=== PATIENT | female | born 2005 | race Caucasian/White ===

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

== ENCOUNTER 2025-03-21 19:23 | Emergency (ER) | payer OTHER, SELFPAY ==
[2025-03-21 19:29] VITALS: BP 129/82
[2025-03-21 19:48] LABS: Hematocrit 38.3 % (37.0-47.0); Hemoglobin 12.1 g/dL (12.0-16.0); Mean Corp Hgb Conc. 31.6 g/dL (33.0-37.0); Mean Corpuscular Volume 82.2 fL (81.0-99.0); Nucleated Red Blood Cells % 0 %; Platelet Count 202 10^3/uL (130-400); Red Cell Dist. Width 14.9 % (11.5-14.5)
[2025-03-21 19:48] LABS: Urine Character Clear (Clear)
[2025-03-21 19:59] LABS: Urine Squamous Cell 21-25 /LPF (Few)
[2025-03-21 20:00] LABS: Urine Red Blood Cell None Seen /HPF (0-2)
[2025-03-21 20:16] LABS: HCG, Serum Qualitative Screen Negative
[2025-03-21 20:23] LABS: Troponin I < 0.012 ng/ml
[2025-03-21 20:25] LABS: ALT (SGPT) 25 U/L (0-35); AST (SGOT) 22 U/L (14-36); Albumin 4.8 g/dl (3.5-5.0); Alkaline Phosphatase 85 U/L (38-126); Blood Urea Nitrogen 16 mg/dl (7-17); Calcium 9.9 mg/dl (8.4-10.2); Carbon Dioxide 25 mmol/L (22-30); Chloride 105 mmol/L (98-107); Glucose 93 mg/dl (70-99); Lipase 64 U/L (23-300); Potassium 4.5 mmol/L (3.5-5.1); Sodium 135 mmol/L (135-145); Total Protein 8.1 g/dl (6.3-8.2); eGFR > 60.00
--- NOTE | 2025-03-21 21:27 | ED.GENMED ---
History of Present Illness
General
Chief Complaint: Abdominal Symptoms
Source: patient
Time Seen by Provider: 03/21/25 21:10
History of Present Illness
History of Present Illness:
This patient is a 20-year-old female who states she was feeling perfectly well until she arrived to [employer] a few hours ago and developed nausea associated with several episodes of nonbloody vomiting. With this, she also noted generalized
abdominal, headache, and chest pain. She says she is having 'a lot of anxiety', and the symptoms are very typical when her anxiety worsens. She denies SI or HI, feels safe where she lives, and states she has 'a lot going on'. Her LMP was
approximately 2 weeks ago. She denies vaginal discharge or bleeding, urinary symptoms, recent trauma or fall, photophobia, visual changes, neck pain, numbness, tingling, focal weakness, dyspnea. Her chest discomfort is vague, anterior, no LOC not
localized, not pleuritic in nature, not associated with URI symptoms or dyspnea or leg swelling. Patient is not on estrogen products and is a non-smoker, no identifiable PE risk factors noted. Headache is generalized, mild, without provoking or
relieving factors, not sudden onset, not worst of life, not associate with neurological symptoms.
Past History
Past History
ED Past Medical History: Psychiatric and Other (Gastritis)
ED Past Surgical History: None
Social History
Tobacco: Former smoker
Alcohol: None
Drug: None
Personal: Single
Living: other ('intermediate')
Phy Exam
Physical Exam
Physical Exam:
GENERAL: Alert , in no apparent distress
EYE: pupils equal and reactive, no photophobia, EOMI, no nystagmus
NECK: Supple, no significant adenopathy.
ENT: o/p clr, mmm.
CARDIAC: Regular rate and rhythm .
LUNGS: Clear breath sounds bilaterally, no acute respiratory distress, no wheezes/rales/rhonchi
ABDOMEN: Soft, without focal tenderness, no r/g, no cvat
NEUROLOGICAL: Alert and oriented, no focal neuro deficits
SKIN: Warm and dry, skin intact.
MUSCULOSKELETAL: No edema, well perfused.
PSYCH: Normal and appropriate interaction.
Course
Orders/Labs/Results
Orders:
Orders
03/21/25 19:31
ECG [Electrocardiogram (*1)] Urgent
Reason for Study: Chest Pain
EKG- Treatment ONCE
Urinalysis Reflex To Culture Urgent
Date Specimen was Collected: 03/21/25
Time Specimen was Collected: 19:31
Urine Microscopic Reflex Cult Urgent
Urine Culture Urgent
ROMAN Source: U
Specimen Description:
Date Specimen was Collected: 03/21/25
Time Specimen was Collected: 19:31
Test Result ONCE
03/21/25 19:36
Complete Blood Count/With Diff Urgent
Comprehensive Metabolic Panel Urgent
HCG, Serum Qualitative Screen Urgent
Lipase Urgent
Troponin I Urgent
03/21/25 21:27
Ibuprofen [Motrin] 800 mg PO NOW STA
Ondansetron HCl [Zofran] 4 mg PO NOW STA
Abnormal Lab Results
03/21/25 03/21/25
19:31 19:36
MCH 26.0 L pg
(27.0-31.0)
MCHC 31.6 L g/dL
(33.0-37.0)
RDW 14.9 H %
(11.5-14.5)
Absolute Neuts (auto) 6.8 H 10^3/uL
(1.4-6.5)
Absolute Monos (auto) 0.8 H 10^3/uL
(0.1-0.6)
Leukocyte Esterase Rfl 1+ A
(Negative)
Urine Bacteria (Reflex) Few A
(Negative)
03/21/25 19:36
03/21/25 19:36
Vital Signs
Initial and Last Documented VS:
Initial Vital Signs
Temp Pulse Resp BP Pulse Ox
98.0 F 79 20 129/82 99
03/21/25 19:29 03/21/25 19:29 03/21/25 19:29 03/21/25 19:29 03/21/25 19:29
Last Documented Vital Signs
Temp Pulse Resp BP Pulse Ox
98.1 F 76 14 121/80 98
03/21/25 21:40 03/21/25 21:40 03/21/25 21:40 03/21/25 21:40 03/21/25 21:40
*Pulse Oximetry
SaO2: 99
Oxygen Mode of Delivery: Room air
Patient hypoxic: no
*Critical Care Note
Total Time (30-74mins, 75-104mins- exclusive of procedures): Not Applicable
Update Note
Update Note:
Patient presents to the Emergency Department with __nausea vomiting with anxiety, headache, abdominal pain, chest pain
Number and Complexity of Problems Addressed at the Encounter
� Chronic conditions affecting care:
� Acute Exacerbation and/or Progression of Chronic Illness:
� Differential Diagnosis includes: But not limited to tension headache, SAH, pleurisy, PE, pericarditis, anxiety, cholecystitis, appendicitis, gastritis, etc. etc. etc.
Amount and/or Complexity of Data to be Reviewed and Analyzed
� I performed an independent evaluation of and my interpretation is:
EKG: Read by me, normal sinus rhythm, normal rate, normal axis, no acute ischemia
CT:
Xrays:
Laboratory Studies: Generally unremarkable, hCG negative
Other:
� Review of other/old records reveals: Prior ER visits reviewed
� Clinical information was obtained by an independent historian:
� Prescriptions/Medications Considered but not given:
� Further testing considered but not performed:
Risk of Complications and/or Morbidity or Mortality of Patient Management
� Social determinants of health affecting care:
� Discussion with other providers (PCP, Hospitalists, Consultants, etc):
� Escalation of care including admission/observation vs risk of discharge considered: Patient overall well-appearing, no focal findings or 'red flags' to suggest serious or life-threatening etiology for her diffuse symptoms.
Patient given pain medication and Zofran, will observe.
ED Attending Note
-
Portions of this chart may have been created with voice recognition software.� Occasional wrong word or��sound alike� substitutions may have occurred due to the inherent limitations of voice recognition software.
Discharge Plan
Departure
Patient Disposition: Home (Routine Discharge)
Date of Disposition: 03/21/25
Time of Disposition: 22:26
Patient with high blood pressure during this ER visit?: Yes
Condition: Good
Discharge Problem:
Nausea & vomiting
Instructions: Nausea and Vomiting, Adult (DC), Abdominal Pain, BLOOD PRESSURE
Prescriptions:
No Action
pantoprazole [Protonix] 40 mg tablet,delayed release (DR/EC)
40 mg PO DAILY Qty: 10 0RF
Anxiety Medicine
25 mg PO DAILY
Patient Comments:
pt does not know name of medicine and says she started it recently
magnesium glycinate 100 mg magnesium Capsule
100 mg PO HS
Referrals:
Yesenia Ceja CRNP [Family Provider, Family Practice] - Follow up in 2-3 days
Activity Restrictions/Additional Instructions:
IF YOU DEVELOP PERSISTENT NAUSEA OR VOMITING, ANY FEVER, NEW OR PERSISTENT CHEST PAIN HEADACHE OR ABDOMINAL PAIN, GET WORSE, DO NOT GET BETTER, OR OTHER WORRISOME SIGNS, PLEASE RETURN TO THE ER IMMEDIATELY!
Interventions
Interventions:
*Risk Screen - Suicide Last Done: 03/21/25 21:34
*General Assessment Last Done: 03/21/25 19:29
*Neglect/Abuse Screening Last Done: 03/21/25 21:34
*ED- Fall Risk Assessment Last Done: 03/21/25 21:34
*ED COVID-19 Vaccine History Last Done: 03/21/25 21:34
*ED Influenza Vaccine History Last Done: 03/21/25 21:34
*Nursing Disposition Last Done: 03/21/25 22:39
XU-Ynwptk-Rblxewqxmk Assessment Last Done: 03/21/25 21:46
Discharge Date and Time
Discharge Date/Time: 03/21/25 22:39
Print Language: ANGUILLAN
[2025-03-21 21:34] VITALS: BMI 30.1
[2025-03-21 21:40] VITALS: BP 121/80
[2025-03-21] MEDS: ZOFRAN 4 MG PO (21:41)
[2025-03-21] MEDS: MOTRIN 800 MG PO (21:41)
--- NOTE | 2025-03-21 21:42 | EDRN ---
Pt says she has been having a lot of pain in her abdomen, cp, head pain, dizziness and vomiting. Pt had symptoms for 1 hour prior to coming to the ED. Pt was not at home and says she did not have time to go home and take medication - pt was in the
parking lot of [employer] when symptoms started. Pt felt she was going to pass out on the way to the ED. Pt ate [employer] around 1500, no food after that meal. Last vomited before arrival in the ED. Nausea currently. No fever/chills/cough. Pain
was constant and is now intermittent described as tightening 'like my whole body is painfully tightening up.' No ill contacts.
--- NOTE | 2025-03-21 21:45 | EDRN ---
No diarrhea or constipation - last BM 1400
== END 2025-03-21 22:39 | disposition home or self-care (01) ==
LOC: EMR 19:23
PROVIDERS: Student in an Organized Health Care Education/Training Program; EMERGENCY PHYSICIAN Emergency Medicine; FAMILY PHYSICIAN Nurse Practitioner Family
DX: R11.2 Nausea with vomiting, unspecified (principal); R51.9 Headache, unspecified; F41.9 Anxiety disorder, unspecified; Z87.19 Personal history of other diseases of the digestive system; Z87.891 Personal history of nicotine dependence
CPT/HCPCS: 99283; 80053; 81003; 81015; 83690; 84484; 84703; 85025; 87086; 93005